=== PATIENT | male | born 1955 | race African-American/Black ===

== ENCOUNTER 2020-12-04 06:26 | Emergency (ER) | payer MEDICARE ==
[~2020-12-04] VITALS: Ht 172.7 cm; Wt 100.0 kg
[2020-12-04 08:32] LABS: BASOPHILS % 0.6 % (0.0-2.0); EOSINOPHILS % 4.2 % (0.0-5.0); HEMATOCRIT. 39.1 % (42.0-52.0); HEMOGLOBIN. 12.3 g/dL (14.0-18.0); LYMPHOCYTES % 22.6 % (20.0-50.0); MEAN CORPUSCULAR HEMOGLOBIN 25.9 pg (28.0-32.0); MEAN CORPUSCULAR VOLUME 82.1 fL (80.0-94.0); MEAN PLATELET VOLUME 9.9 fl (7.4-10.4); MONOCYTES % 11.6 % (2.0-8.0); PLATELET 124 x1000/uL (130-400); RED BLOOD CELL COUNT 4.76 mill/uL (4.7-6.1); RED CELL DISTRIBUTION WIDTH 15.1 % (11.6-14.6)
[2020-12-04] MEDS ORDERED: INDO-13 MT (08:48)
[2020-12-04] MEDS ORDERED: HYDR-4001 MT (08:48)
[2020-12-04] MEDS ORDERED: HYDROCODONE/ACETAMINOPHEN 5/325MG TABLET PO ONE (09:15)
[2020-12-04 09:29] VITALS: BP 123/79
== END 2020-12-04 09:31 | disposition home or self-care (01) ==
LOC: ER 06:26
DX: M10.9 Gout, unspecified (principal); I10 Essential (primary) hypertension; M79.672 Pain in left foot; X58.XXXA Exposure to other specified factors, initial encounter; Y93.01 Activity, walking, marching and hiking; Y92.89 Other specified places as the place of occurrence of the external cause; Y99.8 Other external cause status
CPT/HCPCS: 36415; 73630; 80048; 84550; 85025; 99284

== ENCOUNTER 2021-05-26 06:11 | Emergency (ER) | payer MEDICARE, OTHER ==
[~2021-05-26] VITALS: Ht 172.7 cm; Wt 100.0 kg
[~2021-05-26 06:11] MED LIST: HYDR-4001 MT; INDO-13 MT
[2021-05-26 06:20] VITALS: BP 141/92
[2021-05-26] MEDS ORDERED: IBUP-2029 MT (06:52)
[2021-05-26] MEDS ORDERED: PENI500T MT (06:52)
[2021-05-26] MEDS ORDERED: KETOROLAC 60MG/2ML VIAL IM ONE (07:00)
== END 2021-05-26 07:22 | disposition home or self-care (01) ==
LOC: ER 06:11
DX: R51.9 Headache, unspecified (principal); I10 Essential (primary) hypertension; Z79.899 Other long term (current) drug therapy
CPT/HCPCS: 96372; 99283; J1885

== ENCOUNTER 2022-08-06 15:07 | Emergency (ER) | payer OTHER ==
[~2022-08-06] VITALS: Ht 172.7 cm; Wt 96.0 kg
[~2022-08-06 15:07] MED LIST changes: +IBUP-2029 MT; +PENI500T MT
[2022-08-06] MEDS ORDERED: INDO50CA98 MT (16:37)
[2022-08-06] MEDS ORDERED: P20 MT (16:37)
[2022-08-06 16:45] VITALS: BP 138/83
[2022-08-06] MEDS ORDERED: PREDNISONE 20MG TABLET PO SCH (16:45)
[2022-08-06] MEDS ORDERED: KETOROLAC 30MG/ML VIAL IM ONE (16:45)
== END 2022-08-06 17:23 | disposition home or self-care (01) ==
LOC: ER 15:07
DX: M10.9 Gout, unspecified (principal); I10 Essential (primary) hypertension
CPT/HCPCS: 96372; 99283; J1885; J7512

== ENCOUNTER 2023-01-23 03:27 | Emergency (ER) | payer OTHER ==
[~2023-01-23] VITALS: Ht 172.7 cm; Wt 100.0 kg
[~2023-01-23 03:27] MED LIST changes: +INDO50CA98 MT; +P20 MT
[2023-01-23 03:49] VITALS: BP 134/83; PULSE 86; RESP 16; TEMP 97.9; O2SAT 99
[2023-01-23] MEDS ORDERED: AMOX1TAB16 MT (06:12)
[2023-01-23] MEDS ORDERED: NAPR500T7 MT (06:12)
== END 2023-01-23 06:25 | disposition home or self-care (01) ==
LOC: ER 04:42
DX: K08.89 Other specified disorders of teeth and supporting structures (principal); Z79.899 Other long term (current) drug therapy
CPT/HCPCS: 99283

== ENCOUNTER 2023-08-06 05:56 | Emergency (ER) | payer MEDICARE, MEDICAID ==
[~2023-08-06] VITALS: Ht 172.7 cm; Wt 100.0 kg
[~2023-08-06 05:56] MED LIST changes: +AMOX1TAB16 MT; +NAPR500T7 MT
[2023-08-06 06:05] VITALS: O2SAT 100
[2023-08-06 07:41] LABS: BASOPHILS % 1.5 % (0.0-2.0); DIFFERENTIAL COMMENT 0; EOSINOPHILS % 3.5 % (0.0-5.0); HEMATOCRIT. 39.7 % (42.0-52.0); HEMOGLOBIN. 12.6 g/dL (14.0-18.0); LYMPHOCYTES % 29.6 % (20.0-50.0); MEAN CORPUSCULAR HEMOGLOBIN 25.8 pg (28.0-32.0); MEAN CORPUSCULAR HGB CONC 31.8 g/dL (31.0-37.0); MEAN PLATELET VOLUME 9.4 fl (7.4-10.4); MONOCYTES % 14.3 % (2.0-8.0); NEUTROPHILS % 51.1 % (40.0-76.0); PLATELET 125 x1000/uL (130-400); RED CELL DISTRIBUTION WIDTH 14.6 % (11.6-14.6); WHITE BLOOD COUNT 5.1 x1000/uL (4.5-11.0)
[2023-08-06 07:57] LABS: ALANINE AMINOTRANSFERASE 8 IU/L (10-49); ALBUMIN 4.1 g/dL (3.2-4.8); AMYLASE 177 IU/L (30-118); ASPARTATE AMINOTRANSFERASE 16 IU/L (<34); BILIRUBIN TOTAL 0.4 mg/dL (0.1-1.0); CALCIUM 9.3 mg/dL (8.7-10.4); CARBON DIOXIDE 27 mEq/L (21-32); CHLORIDE 106 mEq/L (98-107); CREATININE 1.4 mg/dL (0.6-1.3); GLUCOSE 93 mg/dL (70-105); PROTEIN TOTAL 7.7 g/dL (6.0-8.3); SODIUM 137 mEq/L (136-145); UREA NITROGEN BLOOD 13 mg/dL (9-23)
[2023-08-06] MEDS: IOHEXOL-300 100 ML BOTTLE ONE (09:23)
[2023-08-06] MEDS: AMPICILLIN SOD/SULBACTAM NA 3 G in SODIUM CHLORIDE 0.9% 100 ML IV SCH (10:00)
[2023-08-06] MEDS: HYDRALAZINE 20MG/ML VIAL IV ONE (17:15)
[2023-08-06] MEDS ORDERED: AMPICILLIN SOD/SULBACTAM NA 3 G in SODIUM CHLORIDE 0.9% 100 ML IV SCH (17:15)
[2023-08-06] MEDS: DEXAMETHASONE 10 MG/ML VIAL IV ONE (18:20)
[2023-08-06 22:40] VITALS: BP 128/80; PULSE 76; RESP 14; TEMP 98.1
== END 2023-08-06 23:02 | disposition short-term general hospital (02) ==
LOC: ER 05:56
DX: J36 Peritonsillar abscess (principal); Z79.899 Other long term (current) drug therapy
CPT/HCPCS: 99285; 96374; 70487; 80053; 82150; 85025; 36415; Q9967; J0295; J1100; J7050

== ENCOUNTER 2025-01-20 23:38 | Emergency (ER) | payer MEDICARE, MEDICAID ==
[~2025-01-20] VITALS: Ht 167.6 cm; Wt 96.0 kg
[~2025-01-20 23:38] MED LIST changes: +AMLO10TA80 MT; -AMOX1TAB16 MT; +ASPI-1160 PO; +CLOP-31 PO; +FAMO20TA8 PO; -IBUP-2029 MT; -INDO-13 MT; -INDO50CA98 MT; +LIP40 PO; +METF-414 PO; -NAPR500T7 MT; -P20 MT; -PENI500T MT
[2025-01-20 23:56] VITALS: O2SAT 100
[2025-01-21] MEDS ORDERED: OFLO5DRO4 RIGHT EAR (00:16)
[2025-01-21 01:12] VITALS: BP 119/79; PULSE 75; RESP 18; TEMP 36.9; O2SAT 100
== END 2025-01-21 01:14 | disposition home or self-care (01) ==
LOC: ER 23:38
DX: H60.91 Unspecified otitis externa, right ear (principal); E11.9 Type 2 diabetes mellitus without complications; I10 Essential (primary) hypertension; Z79.02 Long term (current) use of antithrombotics/antiplatelets; Z79.82 Long term (current) use of aspirin; Z79.84 Long term (current) use of oral hypoglycemic drugs; Z79.899 Other long term (current) drug therapy; Z86.73 Personal history of transient ischemic attack (TIA), and cerebral infarction without residual deficits
CPT/HCPCS: 99283